=== PATIENT | male | born 2000 | race Caucasian/White ===

== ENCOUNTER → 2025-01-21 13:18 | Outpatient (BNVA) | payer SELFPAY | PROVIDERS: Family Provider Internal Medicine | DX: J02.9 Acute pharyngitis, unspecified (principal) | CPT/HCPCS: 87071; 87880 ==

== ENCOUNTER 2025-05-04 16:36 | Emergency (ER) | payer BC, SELFPAY ==
[2025-05-04 16:41] VITALS: PULSE 68; RESP 14; TEMP 36.7; O2SAT 100; BMI 25.8
[2025-05-04 18:00] VITALS: BP 140/91; O2SAT 94
--- NOTE | 2025-05-04 18:08 | XRR_ITS ---
PROCEDURE INFORMATION: Exam: XR Right Ankle Exam date and time: 05/04/2025 6:15 PM Age: 25 years old Clinical indication: Injury or trauma; Other: Dropped piece of metal on RT ankle; Laceration; Right; Foreign body involvement not specified TECHNIQUE: Imaging protocol: Radiologic exam of the right ankle. Views: 3 or more views. COMPARISON: No relevant prior studies available. FINDINGS: Bones/joints: No fracture or dislocation is evident. No joint effusion. Soft tissues: Soft tissue injury laterally. No radiopaque foreign body observed. XR/XR ankle RT min 3V* [id number] IMPRESSION: Lateral soft tissue injury with no foreign body and no acute osseous findings.
[2025-05-04 18:32] VITALS: RESP 18
[2025-05-04] MEDS: morphine 4 mg/mL SDV 1 mL 8 MG IM (18:32)
[2025-05-04] MEDS: ondansetron hcl ODT 4 mg Tab PO (18:33)
--- NOTE | 2025-05-04 18:36 | ED_ITS ---
HPI - Wound/Laceration 2 General: Chief Complaint: Wound/Laceration Stated Complaint: R ankle lac History of Present Illness: Patient is a 25-year-old gentleman without previous medical history, that just prior to arrival dropped a piece of metal, that hit the right lateral side of his ankle. This was from a stinson, an edge off of this heavy equipment fell off, hit his right lateral ankle, which broke this piece in half. He has large laceration to his right ankle and severe pain. No sensory changes Extremity Location: Right: ankle Associated symptoms: Denies chills, fever(s), nausea or vomiting Related Data Previous Rx's ?Medication ?Instructions ?Recorded ondansetron 4 mg disintegrating 4 mg PO Q6H PRN nausea and 01/21/25 tablet vomiting #12 tabs cephalexin 500 mg capsule 500 mg PO BID 5 days #10 cap s 05/04/25 Allergies Allergy/AdvReac Type Severity Reaction Status Date / Time No Known Allergies Allergy Verified 05/04/25 16:43 Review of Systems 2 Const: Denies: fever(s), chills, body aches or change in weight Eyes: Denies: change in vision, blurry vision, eye discomfort, eye discharge or eye redness ENMT: Denies: throat pain, odynophagia, hoarseness, oral sores, ear or mastoid pain, ear discharge, nasal discharge, nasal congestion, post nasal drip or sinus pain Card: Denies: chest pain, palpitations, irregular heart rhythm or edema Resp: Denies: dyspnea, productive cough, non-productive cough or wheezing GI: Denies: abdominal pain, nausea, vomiting, hematemesis, coffee ground emesis, dysphagia, diarrhea, constipation, GI cramping, change in bowel habits, hematochezia or melena : Denies: flank pain, dysuria, urinary frequency, urinary urgency or urinary hesitancy Musc: Denies: neck pain, joint pain or muscle weakness Skin/Breast: Denies: rash, pruritus, erythema, sores or new lesions Neuro: Reports: headache(s); Denies: numbness in extremities, weakness in extremities, sensory changes, difficulty walking or dizziness Psych: Denies: anxiety or depression Endo: Denies: polyuria, polydipsia or tired all the time PFS ED 2 PFSH: Social History Smoking and tobacco/nicotine status: current every day tobacco/nicotine user Physical Exam 2 Const: COMMON NORMALS: no acute distress, average body habitus, patient oriented x3, healthy appearing, alert and well nourished EXAM LIMITATIONS: no altered mental status GENERAL APPEARANCE: cooperative, comfortable, well kempt and well developed; not in distress, not ill appearing and not frail appearing O RIENTATION/CONSCIOUSNESS: Yes awake, Yes oriented to person, Yes oriented to place and Yes oriented to time; not confused HENMT: COMMON NORMALS: normocephalic, atraumatic, hearing grossly normal bilaterally, external ears normal, EAC's normal, TM's normal bilaterally and Normal external nose present HEAD & SCALP: normal to inspection, normocephalic and atraumatic FACE & SINUS: normal facial exam, sinuses nontender and face symmetric NOSE: Normal external nose present and Normal nares present EXTERNAL EAR: Yes external ears normal EXTERNAL AUDITORY CANAL: EAC's normal TYMPANIC MEMBRANE: TM's normal bilaterally MOUTH: N ormal oral and palatal mucosa present TEETH & GINGIVA: no abnormal tooth and associated gingiva THROAT: posterior oropharynx normal Eye: COMMON NORMALS: Equal, round and reactive pupils present, EOMs intact bilaterally and conjunctivae normal GENERAL EYE: appearance normal, both eyes and all related structures VISUAL ACUITY: Yes acuity normal ALIGNMENT: Yes alignment normal PERIORBITAL: periorbital findings normal CONJUNCTIVA: Yes conjunctivae normal PUPIL: Yes Equal, round and reactive pupils present Neck/C-Spine: COMMON NORMALS: full ROM, no lymphadenopathy and supple G ENERAL: Yes normal visual inspection and Yes trachea midline CERVICAL SPINE: Yes cervical ROM normal and No pain with cervical ROM Resp: COMMON NORMALS: normal respiratory effort and clear to auscultation bilaterally EFFORT & INSPECTION: Yes able to speak in complete sentences, Yes symmetric chest movement, No abnormal respiratory pattern, No tachypneic and No respiratory distress AUSCULTATION: clear to auscultation bilaterally, normal I/E ratio, no crackles, no rales, no rhonchi and no wheezes Cardio: COMMON NORMALS: regular rate and regular rhythm PALPATION: normal PMI RATE: regular rate RHYTHM: regular rhythm GI: COMMON NORMALS: Normal to inspection, nondistended, normoactive bowel sounds present, Soft to palpation and non-tender INSPECTION: Yes normal to inspection, No abdominal wall ecchymosis, No Abdominal wall edema and No abdominal distension AUSCULTATION: Yes normoactive bowel sounds PALPATION: Yes Soft to palpation, No Tenderness to palpation present (GI), No Guarding due to palpation present (GI), No Rigid due to palpation and No Abdominal wall crepitus present RECTAL EXAM: Yes deferred Extremity: COMMON NORMALS: capillary refill normal RIGHT LOWER EXTREMITY: Y es lower leg Right lower leg: Yes inspection (Laceration laterally) Neuro: COMMON NORMALS: patient oriented x3 SENSORIUM/ORIENTATION: Yes alert, Yes oriented to person, Yes oriented to place and Yes oriented to time CRANIAL NERVES: Yes CN normal except as noted SPEECH: speech normal GAIT: Yes Normal gait present MOTOR EXAM: 5/5 motor strength present throughout Psych: COMMON NORMALS: Normal thought process present and speech normal A PPEARANCE: Yes well kempt ATTITUDE: Yes calm and Yes engaged A CTIVITY/MOTOR BEHAVIOR: Yes appropriate eye contact SPEECH: Yes normal speech MOOD & AFFECT: Yes euthymic mood THOUGHT PROCESS: Normal thought process present THOUGHT CONTENT: Yes Normal thought content present A TTENTION/CONCENTRATION: Yes attention grossly intact MEMORY/COGNITION: Yes memory grossly intact Skin: SKIN IMAGES (MALE): 1. 10 cm laceration Procedures Laceration Laceration 1: Site: lower extremity (ankle, lateral) Side (If applicable): right Size (cm): 16 Description: linear and flap Depth: involves muscle layer Local Anesthetic: lidocaine 1% and with epi Amount of anesthesia used (mL): 15 Pre-repair: wound explored, irrigated extensively, deep structures intact and wound margins revised Skin layer closed with: nylon and other Size (cm): 4-0 Number of sutures: 12 Technique: simple, interrupted Subcutaneous layer closed with: vicryl Size: 4-0 Number of sutures: 1 Technique: running Course 2 Vital Signs: Vital signs: Vital Signs Temperature 98.1 F 05/04/25 16:41 Pulse Rate 68 05/04/25 16:41 Respiratory Rate 18 05/04/25 18:32 Blood Pressure 141/59 05/04/25 18:46 Pulse Oximetry 97 05/04/25 18:46 MDM - Wound/Laceration Medical Decision Making 25-year-old male with laceration to right ankle just prior to arrival when working on metal. Medical Records I reviewed the patient's medical records. Lab Data Radiology Impressions Ankle X-Ray 05/04/25 18:08 IMPRESSION: Lateral soft tissue injury with no foreign body and no acute osseous findings. All radiology interpretation(s) finalized by discharge Discharge Plan Discharge Patient Disposition: Home Clinical Impression: Laceration of ankle, right, complicated Condition: Stable Prescriptions: New cephalexin 500 mg capsule 500 mg PO BID 5 Days Qty: 10 0RF No Action ondansetron 4 mg tablet,disintegrating 4 mg PO Q6H PRN (Reason: nausea and vomiting) Qty: 12 0RF Rx Instructions: 340b please Discharge Orders: Discharge ED (Routine); Ordered 05/04/25 Ordered By: Rima Ty Discharge Diet: Usual diet Discharge Activity: Resume usual activity Patient Instructions: Laceration (ED), Opioid Safety, Pain Management, Patient Portal & [place] Instructions Activity Restrictions/Additional Instructions: Clean area daily with pHisoDerm or Dial soap First [address] antibiotic ointment, after this place Vaseline over this area and cover daily Remove sutures in 12-14 days. You may remove sutures here, or at your primary care physician's office You have 2 hydrocodone for home. You may break these in half and take every 4 hours as needed for pain. After this time, utilize Tylenol, and ibuprofen. Do not use the hydrocodone at work Prophylactic antibiotics have been sent to the pharmacy. Take as directed. Take probiotic or active culture yogurt to avoid infectious diarrhea Return to ED for pustulant drainage, increasing redness, or fever greater than 100.4 ?F Stand Alone Forms: Work/School Release Print Language: Romanian Coding Level of Care Code ED Rebeamer for Kate Jalloh
[2025-05-04 18:46] VITALS: BP 141/59; O2SAT 97
[2025-05-04] MEDS: HYDROcodone-acetaminophen 10-325 mg Tablet 1 TAB PO ×2 (20:25)
[2025-05-04] MEDS: tetanus-dipt-pertussis 0.5 mL SDV IM (20:26)
--- NOTE | 2025-05-04 20:36 | PC.NURSE ---
2 hydrocodones sent home with pt per provider.
[2025-05-04 20:37] VITALS: BP 130/65; PULSE 76; RESP 18; O2SAT 95
--- NOTE | 2025-05-06 19:02 | DCPLANNER ---
Message sent to Ortho for follow up
== END 2025-05-04 20:38 | disposition home or self-care (01) ==
PROVIDERS: Emergency Provider Physician Assistant
DX: S91.011A Laceration without foreign body, right ankle, initial encounter (principal); W20.8XXA Other cause of strike by thrown, projected or falling object, initial encounter
CPT/HCPCS: 12035; 73610; 90471; 90715; 96372; 99284; J2270; J9999; Q0162